=== PATIENT | male | born 1990 | race Caucasian/White ===

== ENCOUNTER 2016-05-14 20:07 | Inpatient (IN) | payer OTHER ==
--- NOTE | ~2016-05-14 | DS ---
Unit #: [id number] #: [id number] [facility] [id number] [facility] [address] [place] [address] [id number] MR#: [id number] NAME: ZACH BERG ROOM: [facility] Age: 26 Sex: M Admission Date: 05/14/2016 : 1990 Discharge Date: 05/18/2016 Attending Physician: Chandra Ornelas M.D. Primary Care Physician: Generic Doctor Not In System DISCHARGE SUMMARY IDENTIFYING DATA Mr. Berg is a 27-year-old white male who is a resident of [place], [place] and was brought to the hospital accompanied by his mother. DISCHARGE DIAGNOSES Psychiatric: Opioid dependence, moderate and acute withdrawals; methamphetamine dependence, moderate; opioid-induced psychosocial. Medical: None. Stressors: Moderate psychosocial stressors. HISTORY OF PRESENT ILLNESS Please see initial psychiatric evaluation for details. PAST PSYCHIATRIC HISTORY Please see initial psychiatric evaluation for details. PAST MEDICAL HISTORY Please see initial psychiatric evaluation for details. HOSPITAL COURSE The patient was admitted to adult chemical dependency and psychiatric unit at [facility] and was oriented to the hospital environment. Routine p.r.n. medications were initiated, and he was started on the opioid detox protocol and was closely monitored. He was taking the medications regularly and was tolerating them fairly well and was able to show a therapeutic response, and was able to come out of the detox without any complications, and was willing to continue treatment on an outpatient basis and as such, it was decided that he will be discharged home and will continue treatment on an outpatient basis. DISCHARGE MEDICATIONS None. DISCHARGE CONDITION Stable. PROGNOSIS Fair. Dictated by... Chandra Ornelas M.D. IAA/modl Unit #: [id number] #: [id number] Patient: ZACH BERG TD: 05/18/2016 06:35 JOB #: [id number] DISCHARGE SUMMARY X Chandra Ornelas MD X DISCHARGE SUMMARY
--- NOTE | ~2016-05-14 | PA ---
Unit #: [id number] #: [id number] Patient: ZACH BERG [id number] [facility] [address] [place] [address] [id number] MR#: [id number] NAME: ZACH BERG ROOM: P183 Age: 26 Sex: M Admission Date: 05/14/2016 : 1990 Date of Assessment: 05/15/2016 Attending Physician: Chandra Ornelas M.D. Admitting Physician: Chandra Ornelas M.D. Primary Care Physician: Generic Doctor Not In System PSYCHIATRIC ASSESSMENT DATE OF SERVICE 05/15/2016. IDENTIFYING DATA Mr. Berg is a 26-year-old single white male, who is a resident of [place], [place] and was brought to the hospital accompanied by his mother. CHIEF COMPLAINT "I need help for the heroin overdose." HISTORY OF PRESENT ILLNESS Mr. Berg is a 26-year-old white male, who was brought to the hospital with history of opioid dependance and COWS score of 17 indicating significant opioid withdrawal symptoms. Reports that he has been using drugs for his entire life and he wants to stop and also stated that he has 2 young girls and he wants to live for them and he is fearful of possible heroin overdose and that he is seeking help and also stated that he is hopeless and helpless about his future and feels the only way he can improve is to get clean for the sake of his daughter. Mother reported that she would like him to get clean so that his daughters can have their dad back. The patient stated that he cannot find a job or pass urine drug screen and stated that he lives anyway he can as he does not have a permanent address and that he and his girlfriend broke up 6 months ago and she overdosed on heroin. She stopped using drugs and then the patient continued using drugs. He does report increasing depression, anxiety, irritability, restlessness, feelings of hopelessness, but denies any suicidal ideations, intent, or plan. SUBSTANCE ABUSE HISTORY The patient has extensive history of substance abuse and dependence including alcohol, cannabis, cocaine, acid, opioids, inhalers, and amphetamines, and currently opioids, particularly IV heroin has been his drug of choice as he reports that he has been using 1 g of IV heroin a day and along with that, he has been using methamphetamine on regular basis as well. PAST PSYCHIATRIC HISTORY The patient has not had any prior inpatient or outpatient psychiatric treatment. Review of the medical records indicate that currently he is not active in treatment program, is not seeing a psychiatrist, not taking any psychotropic medications. Unit #: [id number] #: [id number] Patient: ZACH BERG PAST MEDICAL HISTORY No acute or chronic medical illnesses. ALLERGIES No known medication allergies. CURRENT MEDICATIONS None. PERSONAL AND SOCIAL HISTORY A 26-year-old white male, who reports that he is single, unemployed, and essentially homeless and has poor social support system. MENTAL STATUS EXAMINATION Young white male who was casually dressed with fair personal hygiene, appears to be in no acute distress or discomfort. He was awake and alert on interaction with intact orientation to time, place, and person. His mood was anxious and depressed with a congruent affect. His speech was slow and goal directed. He denies any suicidal or homicidal ideations, and also denies any auditory or visual hallucinations. His insight and judgment remain significantly impaired. DIAGNOSTIC IMPRESSION Psychiatric: Opioid dependence, moderate and acute withdrawals; methamphetamine dependence, moderate; opioid-induced mood disorder. Medical: None. Stressors: Moderate psychosocial stressors. TREATMENT PLAN 1. The patient has presented with history of mood disorder and substance abuse and has been decompensating and will need inpatient hospitalization for detoxification, safety, and stabilization. We will start him back on his home medications. We will adjust the medications and monitor response. 2. Supportive therapy was provided to the patient. 3. Safe, structured and nourishing woman will be provided. ESTIMATED LENGTH OF STAY 5 to 7 days. ABILITY TO HELP SELF Limited. WILLINGNESS TO HELP SELF The patient appears to be willing to help self. STRENGTHS 1. Communicative. 2. Cooperative. PROBLEMS 1. Chronic dysphoric symptoms. 2. Chronic chemical dependency. 3. Poor social support system. DISCHARGE CRITERIA This will be contingent upon the patient's ability to go through detox without having any significant withdrawal symptoms as well as his ability to stay safe to himself, particularly after discharge from the hospital. Unit #: [id number] #: [id number] Patient: ZACH BERG Dictated by... Danial Rausch/chan TD: 05/15/2016 07:03 JOB #: [id number] PSYCHIATRIC ASSESSMENT X Chandra Ornelas MD PSYCHIATRIC ASSESSMENT
--- NOTE | ~2016-05-14 | HP ---
Unit #: [id number] #: [id number] Patient: ZACH BERG [id number] [place] [address] [id number] I MR#: [id number] NAME: ZACH BERG ROOM: P183 Age: 26 Sex: M Admission Date: 05/14/2016 : 1990 Attending Physician: Chandra Ornelas M.D. Admitting Physician: Chandra Ornelas M.D. Primary Care Physician: Generic Doctor Not In System HISTORY AND PHYSICAL HISTORY OF PRESENT ILLNESS Zach is a 26 year old [address] to [facility] because of his poly illicit substance abuse which includes IV heroin and methamphetamine. PAST MEDICAL HISTORY Long history of poly illicit substance abuse to include drugs. PAST SURGICAL HISTORY Nothing reported ALLERGIES No known drug allergies. SOCIAL HISTORY He smokes one pack per day. Denies alcohol. Admits to long history of poly illicit substance abuse to include IV heroin and methamphetamine. FAMILY HISTORY Medically noncontributory. REVIEW OF SYSTEMS CONSTITUTIONAL: No fever or chills. HEENT: Denies any sore throat, ear pain or runny nose. CARDIOVASCULAR: Denies chest pain, irregular heart rhythm or palpitations. CHEST: Denies shortness of breath or cough. No hemoptysis. GASTROINTESTINAL: Denies nausea, vomiting, diarrhea or chronic constipation. ENDOCRINE: Denies history of increased thirst or urination. No recent significant weight loss or gain. GENITOURINARY: Denies dysuria, frequency, or hematuria. SKIN: Denies any rashes. HEMATOLOGIC: Denies history of increased bleeding or bruising. MUSCULOSKELETAL: Denies any hot, swollen joints. No generalized muscle pain. NEUROLOGIC: Denies problems with vision or speech. No frequent, severe headaches. No numbness, tingling or weakness in any extremities. Denies loss of bladder or bowel control. CURRENT MEDICATIONS Detox protocol Unit #: [id number] #: [id number] Patient: ZACH BERG PHYSICAL EXAMINATION GENERAL: Alert, well-nourished, in no apparent distress. VITAL SIGNS: Blood pressure 124/74, heart rate 64, respirations 16, temperature 98.6. WEIGHT: 165 pounds. HEIGHT: 5'11". SKIN: Warm and dry without rash or lesion. HEENT: Normocephalic. TMs not viewed. Oral and nasal passages clear. Conjunctivae clear. Pupils equal, round and reactive to light and accommodation. Extraocular movements intact. NECK: Supple without lymphadenopathy or thyromegaly. HEART: Regular rate and rhythm without murmur. LUNGS: Clear. ABDOMEN: Soft, nontender. : Not done. EXTREMITIES: No evidence of cyanosis, clubbing or edema. Moves all extremities without focal deficit. NEUROLOGICAL: Grossly within normal limits. Cranial Nerves: II: Visual sampson are intact. III, IV AND : Extraocular movements are intact. Pupils are equal, round and reactive to light. V: Facial sensation is grossly normal. VII: Facial movements and expression are normal. VIII: Auditory acuity grossly intact. IX, X: Uvula is midline. Phonation is normal. XI: Patient shrugs shoulders and turns head normally. XII: Tongue protrudes in the midline. Sensory and Motor Function: Sensory and motor sensation is grossly normal. Motor: moves all extremities well. Coordination: Gait is normal. Deep Tendon Reflexes: Intact. IMPRESSION Psychiatric admission RECOMMENDATIONS PSYCHIATRIC: Per psychiatrist. MEDICAL: I see no contraindications to participating in facility's activities. MEDICAL PROGNOSIS Good. MEDICAL CONDITION Stable. Dictated by... Andrew VenegasAAnnalise. for Danial Heller/isaías TD: 05/16/2016 02:57 JOB #: [id number] Unit #: [id number] #: [id number] Patient: ZACH BERG HISTORY AND PHYSICAL X Guerda Bartlett X HISTORY AND PHYSICAL
--- NOTE | ~2016-05-14 | CO ---
Unit #: [id number] #: [id number] Patient: ZACH BERG [id number] [facility] [address] [place] [address] [id number] I MR#: [id number] NAME: ZACH BERG ROOM: 83 Age: 26 Sex: M Admission Date: 05/14/2016 : 1990 Attending Physician: Chandra Ornelas M.D. Primary Care Physician: Generic Doctor Not In System Consultation Date: 05/15/2016 CONSULTATION REPORT SUBJECTIVE Zach is a 26-year-old, admitted because of his illicit drug use which includes IV methamphetamine. We have been asked to see him because of "sores all over his body." OBJECTIVE GENERAL: Alert, well nourished, in no apparent distress. VITAL SIGNS: Blood pressure 120/70, heart rate 80, respirations 16, and temperature 98.6. SKIN: Warm and dry without rash. He has a few scattered scabbed over areas. None of these areas have increased redness, swelling, heat, or pus noted. ASSESSMENT Few scattered healing areas. PLAN Keep the areas clean with soap and water. Dictated by... Guerda Bartlett P.A.-C. for Danail Heller/chan TD: 05/17/2016 22:40 JOB #: [id number] CONSULTATION REPORT X Guerda Bartlett X CONSULTATION REPORT
--- NOTE | ~2016-05-14 | PN ---
Unit #: [id number] #: [id number] Patient: ZACH BERG [id number] [facility] [address] [place] [address] [id number] I MR#: [id number] NAME: ZACH BERG ROOM: P183 Age: 26 Sex: M Admission Date: 05/14/2016 : 1990 Attending Physician: Chandra Ornelas M.D. Admitting Physician: Chandra Ornelas M.D. Primary Care Physician: Generic Doctor Not In System [facility] PROGRESS NOTES DATE May 17, 2016 DISCUSSION Mr. Berg is a 26-year-old white male, who was seen today and chart was reviewed and the case was discussed with the staff. He has been anxious, withdrawn, and rather seclusive to himself. Meanwhile, he has been taking the medications and tolerating them fairly well. We will continue him on his current treatment protocol and monitor his response. Dictated by... Danial Rausch/quintin TD: 05/18/2016 11:26 JOB #: [id number] [facility] PROGRESS NOTES X Chandra Ornelas MD PROGRESS NOTE
--- NOTE | ~2016-05-14 | PN ---
Unit #: [id number] #: [id number] Patient: ZACH BERG [id number] [facility] [address] [place] [address] [id number] MR#: [id number] NAME: ZACH BERG ROOM: P183 Age: 26 Sex: M Admission Date: 05/14/2016 : 1990 Attending Physician: Chandra Ornelas M.D. Admitting Physician: Chandra Ornelas M.D. Primary Care Physician: Dulce Doctor Not In System [facility] PROGRESS NOTES DATE OF SERVICE: 05/16/2016 SUBJECTIVE Mr. Berg is a 26-year-old white male with substance abuse and mood disorder, who was seen today and chart reviewed and case was discussed with the staff. He has been anxious and withdrawn, though appears to be doing fairly well with treatment and detox symptoms, and has been cooperative with treatment recommendation. He has been taking medications and tolerating them fairly well. MENTAL STATUS EXAMINATION Young white male, who was casually dressed with fair personal hygiene, appears to be in no acute distress or discomfort. He is awake and alert on interaction with intact orientation. His mood was anxious with a congruent affect. He denies any suicidal or homicidal ideation. His insight and judgment remain slightly impaired. TREATMENT PLAN 1. We will continue him on his current medications and treatment protocol. We will monitor his response to medications and make further adjustment as needed. 2. We will continue to follow up. Dictated by... Danial Rausch/chan TD: 05/17/2016 02:17 JOB #: [id number] [facility] PROGRESS NOTES X Chandra Ornelas MD PROGRESS NOTE
[2016-05-15 09:53] LABS: URINE APPEARANCE CLOUDY; URINE BLOOD NEG (NEG); URINE COLOR YELLOW; URINE GLUCOSE NORM (NORM); URINE KETONE NEG (NEG); URINE LEUKOCYTE ESTERASE NEG (NEG); URINE NITRATE NEG (NEG); URINE PROTEIN 1+ (NEG); URINE SPECIFIC GRAVITY 1.025 (1.003-1.035); URINE UROBILINOGEN 4 MG/DL (NORM)
[2016-05-15 10:01] LABS: URINE BILIRUBIN NEG (NEG)
[2016-05-15 10:13] LABS: URBCS1 AUWI 0-2 /[HPF] (0-2); URINE BACTERIA AUWI NEG (NEGATIVE); URINE SQUAMOUS EPITHELIAL CELL OCCAS /[HPF]; UWBCS1 AUWI 0-2 (0-5)
[2016-05-15 10:14] LABS: URINE AMORPHOUS SEDIMENT AMORP URATES
[2016-05-15 11:17] LABS: AMPHETAMINE POS (NEG); BARBITURATES NEG (NEG); BENZODIAZEPINES NEG (NEG); COCAINE POS (NEG); MARIJUANA POS (NEG); OPIATES NEG (NEG); TRICYCLIC ANTIDEPRESSANTS NEG (NEG); U METHADONE NEG (NEG)
[2016-05-15 12:40] LABS: BASOPHIL% 0.6 % (0-2.5); EOSINOPHIL# 0.3 X10e3 (0-0.7); EOSINOPHIL% 3.2 % (0.0-7.0); HEMATOCRIT 44.7 % (38.0-50.0); LYMPHOCYTE# 2.9 X10e3 (1.0-3.5); LYMPHOCYTE% 34.4 % (17.0-45.0); MEAN CELL VOLUME 90.9 FL (83-96); MEAN CORPUSCULAR HEMOGLOBIN 30.6 PG (28-34); MEAN CORPUSCULAR HGB CONC 33.7 g/dL (30-36); MEAN PLATELET VOLUME 8.4 FL (6.5-11.5); MONOCYTE# 0.8 X10e3 (0-1.0); MONOCYTE% 9.2 % (3.0-12.0); NEUTROPHIL# 4.4 X10e3 (1.5-7.1); NEUTROPHIL% 52.6 % (40-75); PLATELET COUNT 253 X10e3 (140-420); RED BLOOD COUNT 4.91 X10e (3.90-5.60); WHITE BLOOD COUNT 8.4 X10e3 (4.0-10.5)
[2016-05-15 12:48] LABS: ALBUMIN SERUM 3.5 g/dL (3.5-5.0); ALKALINE PHOSPHATASE 57 U/L (32-92); ALT (SGPT) 41 U/L (10-40); AST (SGOT) 22 U/L (10-42); BILIRUBIN,TOTAL 0.4 mg/dL (0.2-2.0); BLOOD UREA NITROGEN 14 mg/dL (9-23); CALCIUM SERUM 9.1 mg/dL (8.4-10.2); CARBON DIOXIDE 28 mmol/L (22-31); CHLORIDE 105 mmol/L (100-111); CREATININE SERUM 0.7 mg/dL (0.6-1.4); GLOM FILT RATE Estimated ABOVE60 mL/min (>60); GLUCOSE FASTING 77 mg/dL (70-110); POTASSIUM 4.1 mmol/L (3.5-5.1); PROTEIN TOTAL SERUM 6.4 g/dL (6.0-8.3); SODIUM 142 mmol/L (135-145); THYROID STIMULATING HORMONE 0.27 uIU/ml (0.34-5.60)
[2016-05-15 12:55] LABS: FREE THYROXIN (T4) 0.94 ng/dL (0.58-1.64)
[2016-05-15 13:03] LABS: DIFF IND NO
== END 2016-05-18 07:48 | disposition home or self-care (01) | DRG 897 ==
LOC: P1E 20:07
PROVIDERS: Psychiatry & Neurology Psychiatry
PROC: HZ2ZZZZ Detoxification Services for Substance Abuse Treatment (ICD-10-PCS; principal; 2016-05-15)
DX: F11.23 Opioid dependence with withdrawal (principal); F15.20 Other stimulant dependence, uncomplicated; F11.24 Opioid dependence with opioid-induced mood disorder; F17.210 Nicotine dependence, cigarettes, uncomplicated
CPT/HCPCS: 80053; 80307; 81003; 84439; 84443; 85025; 86592